=== PATIENT | female | born 2000 | race Caucasian/White ===

== ENCOUNTER 2023-02-20 11:53 | Emergency (ER) | payer OTHER ==
--- NOTE | 2023-02-20 12:13 | EDPHYS ---
Physician Documentation [facility] Name: Vaishali Heredia Age: 22 yrs Sex: Female : 2000 Arrival Date: 02/20/2023 Time: 11:53 Bed DIS4 Private MD: ED Physician Del Reyes HPI: 02/20 13:09 This 22 yrs old Female presents to ER via Ambulatory with complaints of Eye Problem. kb 13:09 The patient sustained a splash. Severity of symptoms: At their worst the symptoms were kb very mild in the emergency department the symptoms are unchanged. The patient has not experienced similar symptoms in the past. The patient has not recently seen a physician. 13:09 Onset: The symptoms/episode began/occurred just prior to arrival. Patient wears kb glasses, wears soft contacts. 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 Pt removed contact and flushed eye. Pt has no complaints but was told she had to come down to the ER for eval. Historical: - Allergies: 12:24 No Known Allergies; ap3 - Home Meds: 12:24 None [Active]; ap3 - PMHx: 12:24 None; ap3 - Immunization history:: Client reports receiving the 2nd dose of the Covid vaccine, Adult Immunizations. - Social history:: Smoking status: Patient denies any tobacco usage or history of. ROS: 13:08 Constitutional: Negative for fever, chills, and weight loss. kb 13:08 All other systems are negative. Exam: 13:08 Constitutional: This is a well developed, well nourished patient who is awake, alert, kb and in no acute distress. Head/Face: Normocephalic, atraumatic. Eyes: Pupils equal round and reactive to light, extra-ocular motions intact. Lids and lashes normal. Conjunctiva and sclera are non-icteric and not injected. Cornea within normal limits. Periorbital areas with no swelling, redness, or edema. ENT: Moist Mucous membranes Respiratory: Respirations even and unlabored. No increased work of breathing. Talking in full sentences Skin: Warm, dry with normal turgor. Normal color. MS/ Extremity: Pulses equal, no cyanosis. Neurovascular intact. Full, normal range of motion. Neuro: Awake and alert, GCS 15, oriented to person, place, time, and situation. Moves all extremities. Normal gait. Vital Signs: 12:25 BP 126 / 74; Pulse 75; Resp 17; Pulse Ox 98% ; Weight 108.86 kg; Height 5 ft. 8 in. ; ap3 12:25 Body Mass Index 36.49 (108.86 kg, 172.72 cm) ap3 MDM: 12:09 Patient medically screened. kb 13:08 Differential diagnosis: Corneal abrasion of Foreign body in Data reviewed: vital signs, kb nurses notes. Counseling: I had a detailed discussion with the patient and/or guardian regarding: the historical points, exam findings, and any diagnostic results supporting the discharge/admit diagnosis, the need for outpatient follow up, an opthalmologist, to return to the emergency department if symptoms worsen or persist or if there are any questions or concerns that arise at home. ED course: Pt has no complaints. No redness or discharge noted from eye. Educated on return precautions. Verbal understanding received. . Administered Medications: No medications were administered Disposition Summary: 02/20/23 12:13 Discharge Ordered Location: Home kb Condition: Stable kb Diagnosis - Person with feared health complaint in whom no diagnosis is made kb Followup: kb - With: Emergency Department - When: As needed - Reason: Worsening of condition Followup: kb - With: Private Physician - When: 2 - 3 days - Reason: Recheck today's complaints, Continuance of care, Re-evaluation by your physician Discharge Instructions: - Discharge Summary Sheet kb - How to Use Eye Drops and Eye Ointments kb Forms: - Medication Reconciliation Form kb - Thank You Letter kb - Antibiotic Education kb - Prescription Opioid Use kb Prescriptions: - Vigamox 0.5 % Ophthalmic Drops - instill 1 drop by OPHTHALMIC route every 8 hours for 7 days; 5 milliliter; kb Refills: 0, Product Selection Permitted Signatures: Anayeli Santos FNP-C FNP-Ckb Prokisch, Amanda RN RN ap3
--- OUTSIDE RECORDS SUMMARY | 2023-02-20 12:13 | XMS REPORT | Continuity of Care Document ---
:2000 Author Organization [facility] t Address [address] [place] [address] Care Team Providers Name Role Phone KRAIG TAYLOR Primary Care Physician Unavailable DR KRAIG TAYLOR Attending Clinician Unavailable [id number] Attending Clinician Unavailable [id number] Attending Clinician Unavailable Cata Negro NP Attending Clinician DR NERI CLARK Attending Clinician Unavailable [phone] Attending Clinician Unavailable Jennie Attending Clinician Unavailable DR KRAIG TAYLOR Admitting Clinician Unavailable DR NERI CLARK Admitting Clinician Unavailable Jennie Admitting Clinician Unavailable Payers Payer Name Policy Type Policy Number Effective Date Expiration Date Herbert lara [facility] [id number] [facility] [id number] 2019 00:00:00 Problems This patient has no known problems. Allergies, Adverse Reactions, Alerts Allergy Allergy Status Severity Reaction(s) Onset Inactive Treating Comm ents Source Name Type Date Date Clinician No Known MA Active UNKNOWN [facility] [place] [facility] Social History Social Habit Start Date Stop Date Quantity Comments Source Gender [facility] Alcohol intake 2022-05-19 2022-05-19 Lifetime [facility] 00:00:00 00:00:00 non-drinker Hospital (finding) History of Social 2022-05-19 2022-05-[address] function 00:00:00 00:00:00 Hospital Tobacco use and 2022-05-03 2022-05-03 Smokeless [facility] exposure 00:00:00 00:00:00 tobacco non-user Hospital Sex Assigned At [birth year] [facility] 00:[facility]00 [facility] Smoking Status Start Date Stop Date Source Never smoked tobacco [facility] Medications Ordered Filled Start Stop Current Ordering Indication Dosage Frequency Signature Comments Components Source Medication Medication Date Date Medication? Clinician (SIG) Name Name citalopram Yes [id number] TAKE 1 [facility] ([facility]) 20 3-[address] [facility] tablet 00:00: [facility] 00 EVERY DAY l citalopram Yes [id number] TAKE 1 [facility] ([facility]) 20 3-[address] [facility] tablet 00:00: [facility]TH [facility]osp[facility] 00 EVERY DAY l citalopram Yes [id number] TAKE 1 [facility] ([facility]) 20 3-[address] MG tablet 00:00: MOUTH [facility]ospita 00 EVERY DAY l citalopram 2022- No [id number] TAKE 1 [facility] ([facility]) 20 11-22-[address] MG tablet 00:00: 00:00 MOUTH Hospit a 00 :00 EVERY DAY l citalopram 0 2022- No [id number] TAKE 1 [facility] ([facility]) 20 11-22-[address] MG tablet 00:00: 00:00 MOUTH Hospit a 00 :00 EVERY DAY l citalopram 0 2022- No [id number] TAKE 1 [facility] ([facility]) 20 11-22-[address] MG tablet 00:00: 00:00 MOUTH Hospit a 00 :00 EVERY DAY l citalopram 2021-10- No [id number] TAKE 1 [facility] ([facility]) 20 12-05- TABLET BY st MG tablet 00:00: 00:00 MOUTH Hospit a 00 :00 EVERY DAY l citalopram 2021-10 No [id number] TAKE 1 [facility] ([facility]) 20 2-14 -[address] MG tablet 00:00: 00:00 MOUTH Hospit a 00 :00 EVERY DAY l citalopram 2021-10 No [id number] TAKE 1 [facility] ([facility]) 20 2-14 02-[address] MG tablet 00:00: 00:00 MOUTH Hospit a 00 :00 EVERY DAY l citalopram 2021- No 20mg QD Take 1 [facility] al[facility] ([facility]) 20 9-15 09-15 tablet (20 s t MG tablet 14:24: 00:00 mg total) Ho spita 37 :00 by mouth l daily. citalopram 2021- No 20mg QD Take 1 [facility] ([facility]) 20 9-15 09-15 tablet (20 s t MG tablet 14:24: 00:00 mg total) Ho spita 37 :00 by mouth l daily. citalopram No 20mg QD Take 1 [facility] ([facility]) 20 9-15 09-15 tablet (20 s t MG tablet 14:24: 00:00 mg total) Ho spita 37 :00 by mouth l daily. norethindro 2021-0 Yes Take by Met hodi ne ac-eth 9-[address] estradiol 14:07: Hospita (MICROGESTI 47 l N 11/10, 21, ORAL) norethindro 2021-0 Yes Take by Met minali ne ac-eth 9-[address] estradiol 14:07: Hospita (MICROGESTI 47 l N 11/10, 21, ORAL) norethindro 2021-0 Yes Take by Met hodi ne ac-eth 9-[address] estradiol 14:07: Hospita (MICROGESTI 47 l N 11/10, 21, ORAL) citalopram 2021- No [id number] 20mg QD Take 1 [facility] ([facility]ele[facility]) 20 9-15 12-14 tablet (20 s t MG tablet 00:00: 00:00 mg total) Ho spita 00 :00 by mouth l daily. citalopram 2021- No [id number] 20mg QD Take 1 [facility] ([facility]) 20 9-15 12-14 tablet (20 s t MG tablet 00:00: 00:00 mg total) Ho spita 00 :00 by mouth l daily. citalopram No [id number] 20mg QD Take 1 [facility] ([facility]) 20 9-15 12-14 tablet (20 s t MG tablet 00:00: 00:00 mg total) Ho spita 00 :00 by mouth l daily. citalopram No [id number] 20mg QD Take 1 [facility] ([facility]) 20 7-19 06-29 tablet (20 s t MG tablet 00:00: 04:59 mg total) Ho spita 00 :00 by mouth l daily for 30 days. citalopram No [id number] 20mg QD Take 1 [facility] ([facility]) 20 05-19-29 tablet (20 s t MG tablet 00:00: 04:59 mg total) Ho spita 00 :00 by mouth l daily for 30 days. citalopram No [id number] 20mg QD Take 1 [facility] ([facility]) 20 05-19- tablet (20 s t MG tablet 00:00: 04:59 mg total) Ho spita 00 :00 by mouth l daily for 30 days. citalopram No [id number] 20mg QD Take 1 [facility] ([facility]) 20 7- tablet (20 s t MG tablet 00:00: 00:00 mg total) Ho spita 00 :00 by mouth l daily for 30 days. citalopram No [id number] 20mg QD Take 1 [facility] ([facility]) 20 7-29 tablet (20 s t MG tablet 00:00: 00:00 mg total) Ho spita 00 :00 by mouth l daily for 30 days. citalopram No [id number] 20mg QD Take 1 [facility] ([facility]) 20 7-03 05-29 tablet (20 s t MG tablet 00:00: 00:00 mg total) Ho spita 00 :00 by mouth l daily for 30 days. cholecalcif cholecalcif No 1 Q1D cholecalci [place] david david ferol da (vitamin (vitamin (vitamin Med ical D3) 125 mcg D3) 125 mcg D3) 125 Group (5,000 (5,000 mcg (5,000 unit) unit) unit) tablet Take tablet Take tablet 1 tablet 1 tablet Take 1 every day every day tablet by oral by oral every day route for route for by oral 10 days. 10 days. route for 10 days. Medrol Medrol No 1dose Medrol [place] (Andrea) 4 mg (Andrea) 4 mg pk(s) (Andrea) 4 mg da tablets in tablets in tablets in Medical a dose pack a dose pack a dose Group Take 1 dose Take 1 dose pack Take pk by oral pk by oral 1 dose pk route. route. by oral route. norgestimat norgestimat No norgestima [place] e-ethinyl e-ethinyl te-ethinyl da estradiol estradiol estradiol Medical 0.18 0.18 0.18 Group mg/0.215mg/ mg/0.215mg/ mg/0.215mg 0.25mg-35 0.25mg-35 /0.25mg-35 mcg(28)tabl mcg(28)tabl mcg(28)tab et TAKE 1 et TAKE 1 let TAKE 1 TABLET BY TABLET BY TABLET BY MOUTH ONCE MOUTH ONCE MOUTH ONCE A DAY A DAY A DAY zinc zinc No 1capsul Q1D zinc [place] sulfate 50 sulfate 50 e(s) sulfate 50 da mg zinc mg zinc mg zinc Medica l (220 mg) (220 mg) (220 mg) Yudelka up capsule capsule capsule Take 1 Take 1 Take 1 capsule capsule capsule every day every day every day by oral by oral by oral route for route for route for 10 days. 10 days. 10 days. albuterol albuterol No 2puff(s Q4H albuterol [place] sulfate HFA sulfate HFA ) sulfate da 90 90 HFA 90 Medical mcg/actuati mcg/actuati mcg/actuat Group on aerosol on aerosol ion inhaler inhaler aerosol Inhale 2 Inhale 2 inhaler puffs every puffs every Inhale 2 4 hours by 4 hours by puffs inhalation inhalation every 4 route as route as hours by needed for needed for inhalation 30 days. 30 days. route as needed for 30 days. alprazolam alprazolam No alprazolam [place] 0.25 mg 0.25 mg 0.25 mg da tablet TAKE tablet TAKE tablet Medical 1/2 -1 1/2 -1 TAKE 1/2 Group TABLET(S) TABLET(S) -1 BY MOUTH BY MOUTH TABLET(S) TWICE A DAY TWICE A DAY BY MOUTH NEEDED NEEDED TWICE A FOR FOR DAY ANXIETY. ANXIETY. NEEDED FOR ANXIETY. ascorbic ascorbic No 2capsul Q6H ascorbic [place] acid acid e(s) acid da (vitamin C) (vitamin C) (vitamin Medical 500 mg 500 mg C) 500 mg Group capsule capsule capsule Take 2 Take 2 Take 2 capsules capsules capsules every 6 every 6 every 6 hours by hours by hours by oral route oral route oral route for 10 for 10 for 10 days. days. days. bupropion bupropion No bupropion [place] HCl SR 150 HCl SR 150 HCl SR 150 da mg mg mg Medical tablet,12 tablet,12 tablet,12 Group hr hr hr sustained-r sustained-r sustained- elease TAKE elease TAKE release ONE (1) ONE (1) TAKE ONE TABLET IN TABLET IN (1) TABLET THE MORNING THE MORNING IN THE ONCE A DAY ONCE A DAY MORNING ORALLY. ORALLY. ONCE A DAY ORALLY. Vital Signs Vital Name Observation Time Observation Value Comments Source BP Diastolic 2021-06-17 00:00:00 80 mm[Hg] [facility] Height 2021-06-17 00:00:00 68 [in_i] [facility] BMI (Body Mass 2021-06-17 00:00:00 33.3 kg/m2 [facility] Medical Index) Group BP Systolic 2021-06-17 00:00:00 114 mm[Hg] [facility] Body Weight 2021-06-17 00:00:00 3499.2 [oz_av] [facility] Body height 2022-07-06 19:08:00 170.2 cm [facility] Body weight 2022-07-06 19:08:00 104.327 kg [facility] BMI 2022-07-06 19:08:00 36.02 kg/m2 [facility] Systolic blood 2022-05-03 19:08:00 122 mm[Hg] [facility] pressure Diastolic blood 2022-05-03 19:08:00 82 mm[Hg] [facility] pressure Heart rate 2022-05-03 19:08:00 78 /min [facility] Body temperature 2022-05-03 19:08:00 36.78 Yasmeen [facility] Oxygen saturation in 2022-05-03 19:08:00 97 /min [facility] Arterial blood by Pulse oximetry Procedures Procedure Date / Time Performed Performing Clinician Sourc e THYROID STIMULATING 2022-05-03 19:41:00 [facility] HORMONE T3, FREE 2022-05-03 19:41:00 [facility] T4, FREE 2022-05-03 19:41:00 [facility] Plan of Care Planned Activity Planned Date Details Comments Source Future Scheduled Test 2023-02-20 Screening for [facility] 12:09:58 Chlamydia trachomatis (procedure) [code = 070854074] Future Scheduled Test 2023-02-20 Hepatitis C [facility] 12:09:58 screening (procedure) [code = 171441589] Future Scheduled Test 2023-02-20 Screening for [facility] 12:09:58 malignant neoplasm of cervix (procedure) [code = 111254632] Future Scheduled Test 2023-02-20 COVID-19 VACCINE ([address] [place] [address] 12:09:58 - Booster for Moderna series) [code = COVID-19 VACCINE (4 - Booster for Moderna series)] Future Scheduled Test 2023-02-20 INFLUENZA VACCINE [facility] 12:09:58 [code = INFLUENZA VACCINE] Future Scheduled Test 2023-02-08 Screening for [facility] 08:42:46 Chlamydia trachomatis (procedure) [code = 733534912] Future Scheduled Test 2023-02-08 Hepatitis C [facility] 08:42:46 screening (procedure) [code = 400548545] Future Scheduled Test 2023-02-08 Screening for [facility] 08:42:46 malignant neoplasm of cervix (procedure) [code = 406404312] Future Scheduled Test 2023-02-08 COVID-19 VACCINE ([address] [place] [address] 08:42:46 - Booster for Moderna series) [code = COVID-19 VACCINE (4 - Booster for Moderna series)] Future Scheduled Test 2023-02-08 INFLUENZA VACCINE [facility] 08:42:46 [code = INFLUENZA VACCINE] Future Scheduled Test 2023-02-08 Screening for [facility] 08:42:46 Chlamydia trachomatis (procedure) [code = 676125482] Future Scheduled Test 2023-02-08 [facility] 08:42:46 screening (procedure) [code = 530892891] Future Scheduled Test 2023-02-08 Screening for [facility] 08:42:46 malignant neoplasm of cervix (procedure) [code = 309005908] Future Scheduled Test 2023-02-08 COVID-19 VACCINE (4 [facility] 08:42:46 - Booster for Moderna series) [code = COVID-19 VACCINE (4 - Booster for Moderna series)] Future Scheduled Test 2023-02-08 INFLUENZA VACCINE [facility] 08:42:46 [code = INFLUENZA VACCINE] Diagnostic Test 2021-06-17 SARS CoV 2 RNA, QL, [place] Pending 00:00:00 nasopharynx [code = Group SARS CoV 2 RNA, QL, nasopharynx] Instructions [facility] Encounters Start End Encounter Admission Attending Care Care Encounter Source Date/Time Date/Time Type Type Clinicians Facility Department ID 2023-02-08 Outpatient KRAIG TAYLOR ELCAMPO [id number] El 11:37:06 [id number] [id number] 2022-08-18 Outpatient ELCAMPO [facility] [id number] El 11:32:18 [id number] [place] [facility] 2022-01-02 Outpatient ELCAMPO E[facility] [id number] El 15:12:06 [id number] [place] [facility] 2023-02-08 2023-02-08 Outpatient M KRAIG TAYLOR ELCAMARNOL Roman [id number] El 11:43:00 12:39:00 [id number] [facility] [id number] [facility] 2022-12-22 2022-12-22 Refill Sruthi 1.2.840.1 [id number] [facility] 00:00:00 00:00:[address] [facility] 3.430.2.7 Hospit a .3.746721 l .8 2022-12-22 2022-12-22 Refill Ali, 1.2.840.1 [id number] [facility] 00:00:00 00:00:[address] Neil 3.430.2.7 Hospit a .3.852728 l .8 2022-11-21 2022-11-21 Refill Ali, 1.2.840.1 [id number] [facility] 00:00:00 00:00:[address] Neil 3.430.2.7 Hospit a .3.241111 l .8 2022-11-21 2022-11-21 Refill Ali, 1.2.840.1 [id number] [facility] 00:00:00 00:00:[address] Neil 3.430.2.7 Hospit a .3.378586 l .8 2022-11-09 2022-11-09 Refill Ali, 1.2.840.1 [id number] [facility] 00:00:00 00:00:[address] Neil 3.430.2.7 Hospit a .3.880577 l .8 2022-11-09 2022-11-09 Refill Ali, 1.2.840.1 [id number] [facility] 00:00:00 00:00:[address] Neil 3.430.2.7 Hospit a .3.437127 l .8 2022-10-01 2022-10-01 Refill Ali, 1.2.840.1 [id number] [facility] 00:00:00 00:00:[address] Neil 3.430.2.7 Hospit a .3.660108 l .8 2022-10-01 2022-10-01 Refill Ali, 1.2.840.1 [id number] [facility] 00:00:00 00:00:[address] Neil 3.430.2.7 Hospit a .3.700608 l .8 2022-07-06 2022-07-06 Telemedici Ali, 1.2.840.1 [id number] [facility] 14:15:00 14:24:48 ne Cata 06179.1.[address] Neil 3.430.2.7 Hospit a .3.221848 l .8 2022-07-06 2022-07-06 Telemedici Ali, 1.2.840.1 [id number] [facility] 14:15:00 14:24:48 ne Cata 81962.1.[address] Neil 3.430.2.7 Hospit a .3.446174 l .8 2022-07-06 2022-07-06 Travel 1.2.840.1 1.2.123.740 [id number] [id number] [facility] 00:00:00 00:00:[address] 3.430.2.7 0.2.7.3.698 Ho spita .3.984777 084.8 l .8 2022-07-06 2022-07-06 Travel 1.2.840.1 1.2.714.538 1694 [id number] [facility] 00:00:00 00:00:[address] 3.430.2.7 0.2.7.3.698 Ho spita .3.260128 084.8 l .8 2022-07-05 2022-07-05 Refill Ali, 1.2.840.1 [id number] [facility] 00:00:00 00:00:[address] Neil 3.430.2.7 Hospit a .3.681058 l .8 2022-07-05 2022-07-05 Refill Ali, 1.2.840.1 [id number] [facility] 00:00:00 00:00:[address] Neil 3.430.2.7 Hospit a .3.059816 l .8 2022-07-05 2022-07-05 Refill Ali, 1.2.840.1 [id number] [facility] 00:00:00 00:00:[address] Neil 3.430.2.7 Hospit a .3.964134 l .8 2022-07-05 2022-07-05 Refill Ali, 1.2.840.1 [id number] [facility] 00:00:00 00:00:[address] Neil 3.430.2.7 Hospit a .3.582975 l .8 2022-05-19 2022-05-19 Telemedici Ali, 1.2.840.1 [id number] Methodi 10:00:00 10:21:23 ne Cata [address]60.1.[address] Neil 3.430.2.7 Hospit a .3.795677 l .8 2022-05-19 2022-05-19 Telemedici Ali, 1.2.840.1 [id number] [facility] 10:00:00 10:21:23 ne Cata [address]184.1.[address] Neil 3.430.2.7 Hospit a .3.423354 l .8 2022-05-03 2022-05-03 Office Ali, 1.2.840.1 [id number] Methodi 14:15:00 14:38:39 Visit Cata 89437.1.[address] Neil 3.430.2.7 Hospit a .3.082627 l .8 2022-05-03 2022-05-03 Office Ali, 1.2.840.1 [id number] 0360 [facility] 14:15:00 14:38:39 Visit Cata 26880.1.[address] Neil 3.430.2.7 Hospit a .3.387321 l .8 2022-05-03 2022-05-03 Travel 1.2.840.1 1.2.713.961 9722 [id number] [facility] 00:00:00 00:00:[address] 3.430.2.7 0.2.7.3.698 Ho spita .3.953046 084.8 l .8 2022-05-03 2022-05-03 Travel 1.2.840.1 1.2.205.610 5070 [id number] [facility] 00:00:00 00:00:[address] 3.430.2.7 0.2.7.3.698 Ho spita .3.210186 084.8 l .8 2022-01-02 2022-01-02 [id number] 15:15:00 16:08:00 [id number] [facility] 2021-06-21 2021-06-21 Outpatient Jennie [facility] [id number] [place] 02:17:00 02:17:00 0831 Medical Group 2021-06-17 2021-06-17 Terri Sherman_Federica [facility] [place] - [id number] [place] 00:00:00 00:00:00 Jocelin Harrison 0827 [facility] BUSINESS LIAISON MANAGER: [address], [place] [address] , Ph. Results Test Description Test Time Test Comments Results Result Comments Source T4, free 2022-05-04 13:12:00 Test Item Value Reference Range Interpretation Comme nts T4, free (test code = 3024-7) 1.13 ng/dL 0.82-1.77 JOSH (test code = JOSH) Performed at: [facility] [id number] Director: Lc Scruggs MD, Phone: [phone] [facility] [id number] 13:12:00 Test Item Value Reference Range Interpretation Comments TSH (test code 1.800 See_Comment [Automated m essage] = 47682-1) The system whic h generated this result transmit tirso reference range : 0.450 - 4.500 uIU/mL. The reference range was not used to interpret this result as normal/abnormal . JOSH (test code Performed at: - = JOSH) [address] [id number] Director: Lc Scruggs MD, Phone: [phone] [place] [address], [id number] 13:12:00 Test Item Value Reference Range Interpretation Comments T3, free (test code 3.3 pg/mL 2.0-4.4 = 3051-0) JOSH (test code = Performed at: JOSH) [address] [id number] Director: Lc Scruggs MD, Phone: [phone] [place] [address], [id number] 13:12:00 Test Item Value Reference Range Interpretation Comments T4, free (test code 1.13 ng/dL 0.82-1.77 = 3024-7) JOSH (test code = Performed at: ) [address] [id number] Director: Lc Scruggs MD, Phone: [phone] [facility] [id number] 13:12:00 Test Item Value Reference Range Interpretation Comments TSH (test code 1.800 See_Comment [Automated m essage] = 49658-7) The system [facility] [employer] generated this result transmit tirso reference range : 0.450 - 4.500 uIU/mL. The reference range was not used to interpret this result as normal/abnormal . JOSH (test code Performed at: - = JOSH) [address] [id number] Director: Lc Scruggs MD, Phone: [phone] [place] [address], [id number] 13:12:00 Test Item Value Reference Range Interpretation Comments T3, free (test code 3.3 pg/mL 2.0-4.4 = 3051-0) JOSH (test code = Performed at: JOSH) [address] [id number] Director: Lc Scruggs MD, Phone: [phone] [facility], [id number] 13:12:00 Test Item Value Reference Range Interpretation Comments T4, free (test code 1.13 ng/dL 0.82-1.77 = 3024-7) JOSH (test code = Performed at: ) [address] [id number] Director: Lc Scruggs MD, Phone: [phone] [facility] [id number] 13:12:00 Test Item Value Reference Range Interpretation Comments TSH (test code 1.800 See_Comment [Automated m essage] = 91947-2) The system [employer] generated this result transmit tirso reference range : 0.450 - 4.500 uIU/mL. The reference range was not used to interpret this result as normal/abnormal . JOSH (test code Performed at: - = JOSH) [address] [id number] Director: Lc Scruggs MD, Phone: [phone] [facility], [id number] 13:12:00 Test Item Value Reference Range Interpretation Comments T3, free (test code 3.3 pg/mL 2.0-4.4 = 3051-0) JOSH (test code = Performed at: ) [address] [id number] Director: Lc Scurggs MD, Phone: [phone] [facility]
--- NOTE | 2023-02-20 12:27 | ER ---
Nurse's Notes [facility] Name: Vaishali Heredia Age: 22 yrs Sex: Female : 2000 Arrival Date: 02/20/2023 Time: 11:53 Bed DIS4 Private MD: Diagnosis: Person with feared health complaint in whom no diagnosis is made Presentation: 02/20 12:14 Chief complaint: Patient states: Had sputum splash in eye while working just prior to ss arrival. Pt reports that she rinsed eye thoroughly, and has no complaints at this time. Coronavirus screen: Client denies travel out of the [place] in the last 14 days. Ebola Screen: Patient denies exposure to infectious person. Patient denies travel to an Ebola-affected area in the 21 days before illness onset. Initial Sepsis Screen: Does the patient meet any 2 criteria? No. Patient's initial sepsis screen is negative. Does the patient have a suspected source of infection? No. Patient's initial sepsis screen is negative. Risk Assessment: Do you want to hurt yourself or someone else? Patient reports no desire to harm self or others. Onset of symptoms was February 20, 2023. 12:14 Method Of Arrival: Ambulatory ss 12:14 Acuity: JOSEPH 4 ss Triage Assessment: 12:24 General: Appears in no apparent distress. Behavior is calm, cooperative, appropriate ap3 for age. Pain: Denies pain. Neuro: Level of Consciousness is awake, alert, obeys commands, Oriented to person, place, time, situation. Cardiovascular: Patient's skin is warm and dry. Respiratory: Airway is patent Respiratory effort is even, unlabored, Respiratory pattern is regular, symmetrical. Historical: - Allergies: 12:24 No Known Allergies; ap3 - Home Meds: 12:24 None [Active]; ap3 - PMHx: 12:24 None; ap3 - Immunization history:: Client reports receiving the 2nd dose of the Covid vaccine, Adult Immunizations. - Social history:: Smoking status: Patient denies any tobacco usage or history of. Screenin:24 [facility] ED Fall Risk Assessment (Adult) History of falling in the last 3 months, ap3 including since admission No falls in past 3 months (0 pts). Abuse screen: Denies threats or abuse. Nutritional screening: No deficits noted. Tuberculosis screening: No symptoms or risk factors identified. Vital Signs: 12:25 BP 126 / 74; Pulse 75; Resp 17; Pulse Ox 98% ; Weight 108.86 kg; Height 5 ft. 8 in. ; ap3 12:25 Body Mass Index 36.49 (108.86 kg, 172.72 cm) ap3 ED Course: 12:04 Patient arrived in ED. am2 12:09 [facility]C [facility] kb 12:09 Del Reyes MD is Attending Physician. kb 12:14 Arm band placed on right wrist. ss 12:16 Triage completed. ss 12:25 Patient has correct armband on for positive identification. ap3 12:25 No provider procedures requiring assistance completed. Patient did not have IV access ap3 during this emergency room visit. Administered Medications: No medications were administered Medication: 12:25 VIS not applicable for this client. ap3 Outcome: 12:13 Discharge ordered by . kb 12:25 Discharged to home ambulatory. ap3 12:25 Condition: good 12:25 Discharge instructions given to patient, Instructed on discharge instructions, follow up and referral plans. medication usage, Demonstrated understanding of instructions, follow-up care, medications. 12:26 Patient left the ED. ap3 Signatures: Anayeli Santos FNP-C FNP-Ckb Smirch, Shelby RN Bharti Camacho Amanda, RN RN ap3
[2023-02-20 12:33] VITALS: BP 126/74; O2SAT 98
== END 2023-02-20 12:26 | disposition home or self-care (01) ==
LOC: CLIENT 11:53 → ER 11:53 → EDSTATUS 12:02 → ER 12:26
DX: Z71.1 Person with feared health complaint in whom no diagnosis is made (principal)
CPT/HCPCS: 99282